=== PATIENT | male | born 2000 | race Caucasian/White ===

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

== ENCOUNTER → 2019-02-24 | Outpatient (CLI) | payer OTHER ==
[2017-12-31 20:08] VITALS: BP 121/64
[~2019-02-24] MED LIST changes: +CYCL10TA2 PO; +NAPR-683 PO
--- NOTE | 2019-02-24 15:03 | KCIC ---
Right breast ultrasound: Reason for examination: Right breast mass. Ultrasound examination of the right breast was performed with comparison views of the left breast. There appears to be bilaterally symmetric gynecomastia in the retroareolar position. No other focal lesions are seen. IMPRESSION: Changes consistent with bilateral gynecomastia in the subareolar positions bilaterally. Recommend clinical follow-up. BI-RADS Category 2: Benign. "Our facility is accredited by the [employer] Mammography Program." This patient's information has been entered into a reminder system for the patient to be notified with the results of the examination and a target date for the next mammogram. Electronically signed by: Juani Dalal MD (02/24/2019 3:01 PM) [id number]
== END | disposition home or self-care (01) ==
LOC: KCIC US 14:25
PROVIDERS: ATTEND Family Medicine
DX: N63.10 Unspecified lump in the right breast, unspecified quadrant (principal)
CPT/HCPCS: 76641

== ENCOUNTER → 2019-03-10 | Day surgery (SDC) | payer OTHER ==
[~2019-03-10] MED LIST changes: +HYDROmorphone 2 MG/ML VIAL IV PRN; +IV RINGERS,LACTATED 1000ML 1,000 ML IV SCH; +LIDOCAINE 2% PF 5 ML VIAL. ONE; +MORPHINE SULFATE 2 MG/ML VIAL. IV PRN; +ONDANSETRON PF 4 MG/2 ML VIAL. IV PRN; +PROCHLORPERAZINE 10 MG/2 ML VIAL. IV PRN; +PROPOFOL 20 ML IV ONE; +fentaNYL PF VIAL 100 MCG/2 ML VIAL IV PRN
[2019-03-10 11:25] VITALS: BP 116/70
--- NOTE | 2019-03-14 09:46 | PATHOLOGY ---
[facility] Accession Number: [id number] . 01 Material submitted: . PART A: duodenum - BIOPSY DUODENAL PART B: stomach - BIOPSY ANTRUM . 01 Clinical history: . Pre-OP DX: Nausea, vomiting, epigastric pain, GERD Post-OP DX: Gastritis and reflux esophagitis . 02 Diagnosis: A. Small bowel, duodenum, biopsy: - No pathologic diagnosis. - Normal villous architecture. . B. Stomas, antrum, biopsy: - Chronic superficial gastritis, mild, with focal intestinal metaplasia. - No evidence of dysplasia. - No evidence of Helicobacter pylori on immunoperoxidase stain. ([facility] 03/13/2019) P/03/13/2019 . 02 Electronically signed: . Rafal Chew MD, Pathologist NPI- [id number] . 01 Gross description: . A. Received in formalin labeled "Perry Cornejo, duodenal BX, rule out celiac disease," are 5 segments of hassan soft tissue measuring 1.2 x 0.9 x 0.2 cm in aggregate dimensions and ranging from 0.3 to 0.4 cm in maximum dimension. The specimen is submitted entirely in cassette A1. . B. Received in formalin labeled "Perry Cornejo, BX antrum gastritis," are 2 segments of hassan soft tissue measuring 0.8 x 0.3 x 0.2 cm in aggregate dimensions and ranging from 0.3 to 0.5 cm in maximum dimension. The specimen is submitted entirely in cassette B1. (TSD; 03/10/2019) TOB/TOB . 02 Pathologist provided ICD-10: K29.30, R10.13 . 02 CPT . 742082, 632868, E34609 Specimen Comment: A courtesy copy of this report has been sent to [facility] Comment: [phone], . Specimen Comment: Report sent to / DR BELTRAN Performed at: [address] [place] [id number] [facility] [address], [place] [id number] MD Alfie Nguyen MD Phone: [phone] Performed at: 02 [facility] [address], [place] [id number] MD Luis Law MD Phone: [phone]
== END | disposition home or self-care (01) ==
LOC: ENDOS 08:36
PROVIDERS: ATTEND Internal Medicine Gastroenterology
DX: K21.0 Gastro-esophageal reflux disease with esophagitis (principal); K31.89 Other diseases of stomach and duodenum; Z79.899 Other long term (current) drug therapy
CPT/HCPCS: 43239; 88305; 88342; J2001; J2704